=== PATIENT | female | born 1990 | race African-American/Black ===

== ENCOUNTER → 2016-06-20 | Outpatient (CLI) | payer OTHER ==
--- NOTE | 2016-06-20 14:47 | REP ---
LEFT FOOT, THREE VIEWS: HISTORY: Foot pain. There is no acute fracture or dislocation. 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 The joint spaces are otherwise normal in appearance. 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 Signed by Fausto Back MD 06/20/2016 02:59 P
== END ==
LOC: M RAD 11:53
PROVIDERS: ATTEND Orthopaedic Surgery
DX: M79.672 Pain in left foot (principal)

== ENCOUNTER → 2016-06-28 | Outpatient (REF) | payer OTHER ==
[2016-06-28 16:37] LABS: MEAN CORPUSCULAR HEMOGLOBIN 28.9 pg (27.0-33.0); MEAN CORPUSCULAR HGB CONC 31.7 g/dl (32.0-36.5); RED CELL DISTRIBUTION WIDTH 12.9 % (11.5-14.5); WHITE BLOOD COUNT 5.2 K/mm3 (4.0-10.0)
[2016-06-28 17:27] LABS: ALBUMIN/GLOBULIN RATIO 0.98 (1.00-1.93); ALKALINE PHOSPHATASE 88 U/L (45-117); ALT/SGPT 18 U/L (12-78); ANION GAP 10 MEQ/L (8-16); AST/SGOT 11 U/L (15-37); BILIRUBIN,TOTAL 0.8 MG/DL (0.2-1.0); BLOOD UREA NITROGEN 14 MG/DL (7-18); CALCIUM LEVEL 9.2 MG/DL (8.5-10.1); CARBON DIOXIDE LEVEL 25 MEQ/L (21-32); CHLORIDE LEVEL 104 MEQ/L (98-107); CREATININE FOR GFR 0.57 MG/DL (0.55-1.02); GLOMERULAR FILTRATION RATE > 60.0 (>60); GLUCOSE, FASTING 75 MG/DL (70-105); POTASSIUM SERUM 4.2 MEQ/L (3.5-5.1); SODIUM LEVEL 139 MEQ/L (136-145); TOTAL PROTEIN 8.1 GM/DL (6.4-8.2)
== END ==
LOC: M SFHCLERA 13:51
PROVIDERS: ATTEND Physician Assistant
DX: R53.83 Other fatigue (principal)

== ENCOUNTER → 2016-07-06 | Outpatient (CLI) | payer OTHER | LOC: M PT 13:30 | PROVIDERS: ATTEND Orthopaedic Surgery | DX: G80.9 Cerebral palsy, unspecified (principal); Z74.09 Other reduced mobility ==

== ENCOUNTER → 2016-07-28 | Outpatient (CLI) | payer OTHER ==
--- NOTE | 2016-07-31 11:42 | REP ---
CT study left foot without contrast: Repeat dictation. History: Evaluate for tarsal coalition. Possible calcaneonavicular subtalar bar. Comparison radiographs are from June 20, 2016. Technique: Helical scanning is acquired and 2 mm axial high resolution images are generated and reviewed. Coronal and sagittal multiplanar re-formation images are obtained. CT findings: There is no evidence of calcaneonavicular or other tarsal coalition. There is talonavicular spurring and there is mild spurring at the level of the first and second tarsometatarsal articulations. There is also spurring between the lateral cuneiform and the cuboid bone. There is fragmented spurring at the articulation between the anterolateral calcaneus and the cuboid bone. Some sclerosis is seen in the cuboid bone. There is also an area of joint space narrowing and beaking or spurring at the volar and medial aspect of the articulation between the third metatarsal and the lateral cuneiform. An os perineum is also noted. There is a tiny accessory navicular ossicle. No bony destructive lesion is seen. No significant soft tissue abnormality is noted. 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 No CT evidence of tarsal coalition. Signed by Regino Cueva MD 07/31/2016 03:34 P
== END ==
LOC: M RAD 10:08
PROVIDERS: ATTEND Orthopaedic Surgery
DX: M19.072 Primary osteoarthritis, left ankle and foot (principal); M25.772 Osteophyte, left ankle

== ENCOUNTER → 2016-08-23 | Outpatient (CLI) | payer OTHER ==
[2016-08-23 20:50] LABS: MEAN CORPUSCULAR HEMOGLOBIN 30.3 pg (27.0-33.0); MEAN CORPUSCULAR HGB CONC 33.5 g/dl (32.0-36.5); MEAN CORPUSCULAR VOLUME 90.6 fl (80.0-96.0); RED CELL DISTRIBUTION WIDTH 12.1 % (11.5-14.5); WHITE BLOOD COUNT 5.9 K/mm3 (4.0-10.0)
== END ==
LOC: M LRY 15:38
PROVIDERS: ATTEND Orthopaedic Surgery
DX: M19.90 Unspecified osteoarthritis, unspecified site (principal); R51 Headache

== ENCOUNTER → 2016-09-19 | Outpatient (CLI) | payer OTHER ==
--- NOTE | 2016-09-19 11:48 | REP ---
MRI BRAIN WITHOUT CONTRAST: HISTORY: Headaches. Severe punctate areas of increased signal intensity on T2-weighted images are present in the periventricular and subcortical white matter. There is no intraparenchymal hemorrhage, infarct, mass or midline shift. The ventricular system is normal in appearance. There is no extracerebral collection. The sinuses are clear. IMPRESSION: There are severe punctate areas of increased signal intensity in the periventricular and subcortical white matter. This is a nonspecific finding. Signed by Fausto Back MD 09/19/2016 11:57 A
[2016-09-19 12:05] VITALS: BP 115/65
== END ==
LOC: M RAD 08:37
PROVIDERS: ATTEND Psychiatry & Neurology Neurology
DX: R51 Headache (principal); R90.89 Other abnormal findings on diagnostic imaging of central nervous system; R42 Dizziness and giddiness; G80.9 Cerebral palsy, unspecified; F17.200 Nicotine dependence, unspecified, uncomplicated; Z88.5 Allergy status to narcotic agent; Z79.899 Other long term (current) drug therapy

== ENCOUNTER 2016-12-22 10:32 | Emergency (ER) | payer OTHER, SELFPAY ==
[~2016-12-22] VITALS: Ht 162.6 cm; Wt 82.0 kg
[2016-12-22 10:32] VITALS: BP 146/72
== END 2016-12-22 10:36 | disposition left against medical advice (07) ==
LOC: M ED 10:32
DX: Z53.21 Procedure and treatment not carried out due to patient leaving prior to being seen by health care provider (principal)

== ENCOUNTER → 2017-03-20 | Outpatient (CLI) | payer MEDICAID ==
--- NOTE | 2017-03-20 14:00 | REP ---
Thyroid ultrasound: Comparison is a ultrasound of the neck soft tissues of the neck dated 03/07/2016 that identified and 8 x 5 mm cyst in the lower pole of the thyroid right lobe. On the study today in both right and left lobes of the thyroid are enlarged and the isthmus is also enlarged. The right lobe measures 5.0 x 1.9 x 1.5 cm. The left lobe measures 5.0 x 2.0 x 1.2 cm. The isthmus measures 4.6 mm in thickness. The parenchyma of the right lobe is homogeneous. The previously identified right lobe cyst is no longer identified. There is a 3.7 mm cyst in the lower pole of the left lobe today. The remainder of the left lung parenchyma is homogeneous. The isthmus parenchyma is homogeneous. Impression: Diffusely enlarged thyroid. There is a 3.7 mm cyst in the lower pole of the left lobe. The previous right lobe cyst is no longer identified. Signed by Baron Fernandez MD 03/20/2017 01:52 P
== END ==
LOC: M RAD 12:00
PROVIDERS: ATTEND Physician Assistant
DX: E04.1 Nontoxic single thyroid nodule (principal)

== ENCOUNTER → 2017-06-14 | Outpatient (CLI) | payer MEDICAID | LOC: M RAD 17:29 | DX: E04.9 Nontoxic goiter, unspecified (principal) | CPT/HCPCS: 76536 ==

== ENCOUNTER 2017-07-18 12:52 | Outpatient (RCR) | payer MEDICAID | END 2017-08-01 | LOC: M PT 12:52 | DX: Z51.89 Encounter for other specified aftercare (principal); R26.2 Difficulty in walking, not elsewhere classified; R53.1 Weakness | CPT/HCPCS: 97110 ==

== ENCOUNTER 2017-08-06 13:07 | Outpatient (RCR) | payer MEDICAID | END 2017-09-01 | LOC: M PT 13:07 | DX: Z51.89 Encounter for other specified aftercare (principal); R26.2 Difficulty in walking, not elsewhere classified | CPT/HCPCS: 97110 ==

== ENCOUNTER 2017-09-12 13:21 | Outpatient (RCR) | payer MEDICAID | END 2017-10-01 | LOC: M PT 13:21 | DX: Z51.89 Encounter for other specified aftercare (principal); G80.9 Cerebral palsy, unspecified; R26.2 Difficulty in walking, not elsewhere classified | CPT/HCPCS: 97110 ==

== ENCOUNTER → 2017-09-20 | Outpatient (REF) | payer MEDICAID | LOC: M SFHCLERA 15:00 | DX: E04.1 Nontoxic single thyroid nodule (principal); E55.9 Vitamin D deficiency, unspecified ==

== ENCOUNTER → 2017-11-09 | Outpatient (REF) | payer MEDICAID ==
[2017-11-09 11:21] LABS: HEMATOCRIT 37.5 % (36.0-47.0); MEAN CORPUSCULAR HEMOGLOBIN 28.7 pg (27.0-33.0); MEAN CORPUSCULAR VOLUME 89.7 fl (80.0-96.0); PLATELET COUNT, AUTOMATED 244 10^3/uL (150-450); RED BLOOD COUNT 4.18 10^6/uL (4.00-5.40); WHITE BLOOD COUNT 4.9 10^3/uL (4.0-10.0)
[2017-11-09 12:13] LABS: TOTAL 25(OH) VITAMIN D 36.5 NG/ML (30.0-100.0)
[2017-11-09 12:55] LABS: ALBUMIN 3.4 GM/DL (3.2-5.2); ALBUMIN/GLOBULIN RATIO 0.89 (1.00-1.93); ALKALINE PHOSPHATASE 72 U/L (45-117); ALT/SGPT 17 U/L (12-78); ANION GAP 6 MEQ/L (8-16); AST/SGOT 9 U/L (7-37); BILIRUBIN,TOTAL 0.3 MG/DL (0.2-1.0); BLOOD UREA NITROGEN 15 MG/DL (7-18); CALCIUM LEVEL 8.5 MG/DL (8.5-10.1); CARBON DIOXIDE LEVEL 27 MEQ/L (21-32); CHLORIDE LEVEL 107 MEQ/L (98-107); CREATININE FOR GFR 0.53 MG/DL (0.55-1.30); FREE T4 1.04 NG/DL (0.76-1.46); GLOMERULAR FILTRATION RATE > 60.0 (>60); GLUCOSE, FASTING 77 MG/DL (70-100); POTASSIUM SERUM 4.4 MEQ/L (3.5-5.1); SODIUM LEVEL 140 MEQ/L (136-145); TOTAL PROTEIN 7.2 GM/DL (6.4-8.2)
== END ==
LOC: M SFHCLERA 10:05
DX: E55.9 Vitamin D deficiency, unspecified (principal); E04.1 Nontoxic single thyroid nodule; G44.209 Tension-type headache, unspecified, not intractable

== ENCOUNTER 2018-01-31 11:16 | Outpatient (RCR) | payer MEDICAID | END 2018-02-01 | LOC: M PT 11:16 | DX: Z51.89 Encounter for other specified aftercare (principal); G80.9 Cerebral palsy, unspecified | CPT/HCPCS: 97110 ==

== ENCOUNTER 2018-02-12 12:59 | Outpatient (RCR) | payer MEDICAID | END 2018-03-03 | LOC: M PT 02-15 13:45 | DX: G80.9 Cerebral palsy, unspecified (principal) | CPT/HCPCS: 97010 ==

== ENCOUNTER 2018-03-22 13:56 | Emergency (ER) | payer MEDICAID ==
[2018-03-22] MEDS: predniSONE 20 MG TAB PO (16:10)
== END 2018-03-22 16:28 | disposition home or self-care (01) ==
LOC: M ED 13:56
DX: T78.40XA Allergy, unspecified, initial encounter (principal); L29.9 Pruritus, unspecified; M79.9 Soft tissue disorder, unspecified; G80.9 Cerebral palsy, unspecified; Z88.5 Allergy status to narcotic agent; Z79.899 Other long term (current) drug therapy; Z79.2 Long term (current) use of antibiotics
CPT/HCPCS: 99283

== ENCOUNTER 2018-05-03 13:26 | Emergency (ER) | payer MEDICAID ==
[2018-05-03] MEDS: PERCOCET 5MG/325MG TAB PO (14:16)
== END 2018-05-03 16:09 | disposition home or self-care (01) ==
LOC: M ED 13:26
DX: M79.671 Pain in right foot (principal)
CPT/HCPCS: 73630

== ENCOUNTER 2018-07-11 11:48 | Emergency (ER) | payer MEDICAID ==
[~2018-07-11] VITALS: Ht 162.6 cm; Wt 76.8 kg
[~2018-07-11 11:48] MED LIST: BACL10TA2 PO; BENA25CA4 PO; FOLI1TAB11 PO; MINO100T PO; PERC5TAB12 PO; PRED20TA PO
[2018-07-11] MEDS ORDERED: IBUPROFEN 600 MG TAB PO ONE (13:45)
--- NOTE | 2018-07-11 15:04 | REP ---
Chest x-ray: Two views. History: Injury in a fall. . Comparison study: No comparison . Findings: The lungs are well inflated and free of infiltrate. The pleural angles are sharp. The heart size is normal. Pulmonary vasculature is not increased. No significant bony abnormality is seen. Impression: Negative chest x-ray. Electronically Signed by Regino Cueva MD 07/11/2018 02:55 P
--- NOTE | 2018-07-11 15:09 | REP ---
LEFT TIBIA/FIBULA, FOUR VIEWS: HISTORY: Fall. There is no acute fracture or dislocation. The joint spaces are normal in appearance. IMPRESSION: There is no acute fracture or dislocation. Electronically Signed by Fausto Back MD 07/11/2018 03:14 P
[2018-07-11 15:39] VITALS: BP 130/70
[2018-07-11] MEDS ORDERED: IBUP-1022 PO (15:39)
== END 2018-07-11 15:50 | disposition home or self-care (01) ==
LOC: M ED 11:48
DX: T14.8XXA Other injury of unspecified body region, initial encounter (principal); W19.XXXA Unspecified fall, initial encounter; Y92.099 Unspecified place in other non-institutional residence as the place of occurrence of the external cause; Y93.9 Activity, unspecified; Y99.9 Unspecified external cause status; G80.9 Cerebral palsy, unspecified; Z88.5 Allergy status to narcotic agent

== ENCOUNTER → 2018-09-30 | Outpatient (REF) | payer MEDICAID ==
[~2018-09-30] MED LIST changes: +IBUP-1022 PO
[2018-09-30 17:55] LABS: BASO % 0.2 % (0.0-1.0); EOS % 0.8 % (0.0-3.0); HEMATOCRIT 37.8 % (36.0-47.0); HEMOGLOBIN 11.9 g/dl (12.0-15.5); LYMPH % 40.6 % (24.0-44.0); MEAN CORPUSCULAR HEMOGLOBIN 28.9 pg (27.0-33.0); MEAN CORPUSCULAR HGB CONC 31.5 g/dl (32.0-36.5); MEAN CORPUSCULAR VOLUME 91.7 fl (80.0-96.0); MONO # 0.3 10^3/uL (0.0-0.8); MONO % 6.7 % (0.0-5.0); NEUTROPHILS # 2.5 10^3/uL (1.8-7.7); NEUTROPHILS % 51.5 % (36.0-66.0); PLATELET COUNT, AUTOMATED 258 10^3/uL (150-450); RED BLOOD COUNT 4.12 10^6/uL (4.00-5.40); WHITE BLOOD COUNT 4.8 10^3/uL (4.0-10.0)
[2018-09-30 18:07] LABS: ALBUMIN 3.5 GM/DL (3.2-5.2); ALT/SGPT 18 U/L (12-78); BILIRUBIN,TOTAL 0.5 MG/DL (0.2-1.0); BLOOD UREA NITROGEN 16 MG/DL (7-18); CALCIUM LEVEL 8.5 MG/DL (8.5-10.1); CARBON DIOXIDE LEVEL 26 MEQ/L (21-32); CHLORIDE LEVEL 106 MEQ/L (98-107); CREATININE FOR GFR 0.53 MG/DL (0.55-1.30); FREE T4 1.13 NG/DL (0.76-1.46); GLOMERULAR FILTRATION RATE > 60.0 (>60); GLUCOSE, FASTING 70 MG/DL (70-100); SODIUM LEVEL 138 MEQ/L (136-145); THYROID STIMULATING HORMONE 0.687 uIU/ML (0.358-3.740); TOTAL 25(OH) VITAMIN D 26.7 NG/ML (30.0-100.0); TOTAL PROTEIN 7.7 GM/DL (6.4-8.2)
== END ==
LOC: M SFHCLERA 11:52
PROVIDERS: ATTEND Family Medicine
DX: E55.9 Vitamin D deficiency, unspecified (principal); E04.1 Nontoxic single thyroid nodule; M06.9 Rheumatoid arthritis, unspecified

== ENCOUNTER 2018-11-18 18:39 | Emergency (ER) | payer MEDICAID ==
[~2018-11-18] VITALS: Ht 162.6 cm; Wt 88.2 kg
[2018-11-18] MEDS ORDERED: BACL10TA2 PO (18:47)
[2018-11-18] MEDS ORDERED: FOLI1TAB11 PO (18:48)
[2018-11-18 19:22] LABS: BASO % 0.3 % (0.0-1.0); EOS # 0.1 10^3/uL (0.0-0.50); EOS % 0.8 % (0.0-3.0); HEMATOCRIT 39.9 % (36.0-47.0); HEMOGLOBIN 12.6 g/dl (12.0-15.5); LYMPH # 1.9 10^3/uL (1.5-6.5); LYMPH % 31.2 % (24.0-44.0); MEAN CORPUSCULAR HEMOGLOBIN 27.9 pg (27.0-33.0); MEAN CORPUSCULAR HGB CONC 31.6 g/dl (32.0-36.5); MEAN CORPUSCULAR VOLUME 88.5 fl (80.0-96.0); MONO # 0.3 10^3/uL (0.0-0.8); MONO % 4.9 % (0.0-5.0); NEUTROPHILS # 3.7 10^3/uL (1.8-7.7); NEUTROPHILS % 62.6 % (36.0-66.0); PLATELET COUNT, AUTOMATED 248 10^3/uL (150-450); RED BLOOD COUNT 4.51 10^6/uL (4.00-5.40); WHITE BLOOD COUNT 5.9 10^3/uL (4.0-10.0)
[2018-11-18 19:59] LABS: ALBUMIN 3.6 GM/DL (3.2-5.2); ALT/SGPT 22 U/L (12-78); BILIRUBIN,DIRECT < 0.1 MG/DL (0.0-0.2); BILIRUBIN,TOTAL 0.2 MG/DL (0.2-1.0); BLOOD UREA NITROGEN 16 MG/DL (7-18); CALCIUM LEVEL 9.2 MG/DL (8.5-10.1); CARBON DIOXIDE LEVEL 28 MEQ/L (21-32); CHLORIDE LEVEL 107 MEQ/L (98-107); CK-MB VALUE MASS < 1.0 NG/ML (<3.6); CPK CREATINE PHOSPHOKINASE 111 U/L (26-192); CREATININE FOR GFR 0.62 MG/DL (0.55-1.30); ETHYL ALCOHOL (ETHANOL) < 0.003 % (0.000-0.010); GLOMERULAR FILTRATION RATE > 60.0 (>60); GLUCOSE, FASTING 91 MG/DL (70-100); POTASSIUM SERUM 4.2 MEQ/L (3.5-5.1); SODIUM LEVEL 139 MEQ/L (136-145); THYROID STIMULATING HORMONE 0.997 uIU/ML (0.358-3.740); TOTAL PROTEIN 7.8 GM/DL (6.4-8.2); TROPONIN I < 0.02 NG/ML (< 0.10)
[2018-11-18 20:13] LABS: AMPHETAMINES LEVEL URINE NEGATIVE (NEGATIVE); BARBITURATES URINE NEGATIVE (NEGATIVE); BENZODIAZEPINES URINE NEGATIVE (NEGATIVE); CANNABINOIDS URINE POSITIVE (NEGATIVE); COCAINE METABOLITE URINE NEGATIVE (NEGATIVE); METHADONE URINE NEGATIVE (NEGATIVE); OPIATES URINE NEGATIVE (NEGATIVE); PHENCYCLIDINE URINE NEGATIVE (NEGATIVE)
[2018-11-18 22:37] VITALS: BP 132/76
--- NOTE | 2018-11-19 06:01 | ECGEPIP ---
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
== END 2018-11-18 22:44 | disposition home or self-care (01) ==
LOC: M ED 18:39
DX: E86.0 Dehydration (principal); G80.9 Cerebral palsy, unspecified; Z88.5 Allergy status to narcotic agent
CPT/HCPCS: 36415; 80048; 80076; 80307; 81001; 82550; 82553; 84443; 85025; 87086; 93005; 99284; G0480

== ENCOUNTER → 2019-08-12 | Outpatient (REF) | payer MEDICAID ==
[2019-08-12 19:47] LABS: HEMOGLOBIN A1c 5.5 %
== END ==
LOC: M SFHCLERA 14:21
PROVIDERS: ATTEND Family Medicine
DX: E66.9 Obesity, unspecified (principal)

== ENCOUNTER 2020-11-10 12:32 | Emergency (ER) | payer MEDICARE, MEDICAID ==
[~2020-11-10] VITALS: Ht 162.6 cm; Wt 100.0 kg
[2020-11-10] MEDS ORDERED: BACITRACIN OINTMENT 30GM TUBE TOP ONE (15:35)
[2020-11-10 16:03] VITALS: BP 129/84
== END 2020-11-10 16:04 | disposition home or self-care (01) ==
LOC: M ED 12:32
DX: T23.202A Burn of second degree of left hand, unspecified site, initial encounter (principal); T31.0 Burns involving less than 10% of body surface; Z48.00 Encounter for change or removal of nonsurgical wound dressing; X15.8XXA Contact with other hot household appliances, initial encounter; Y92.009 Unspecified place in unspecified non-institutional (private) residence as the place of occurrence of the external cause; Y93.9 Activity, unspecified; Y99.9 Unspecified external cause status; Z88.5 Allergy status to narcotic agent

== ENCOUNTER → 2021-03-17 | Outpatient (CLI) | payer MEDICARE, MEDICAID ==
[2021-03-17 16:12] LABS: BASO % 0.3 % (0.0-1.0); EOS # 0.1 10^3/uL (0.0-0.5); EOS % 1.5 % (0.0-3.0); HEMATOCRIT 38.6 % (36.0-47.0); HEMOGLOBIN 12.4 g/dl (12.0-15.5); LYMPH # 1.6 10^3/uL (1.5-5.0); LYMPH % 27.7 % (24.0-44.0); MEAN CORPUSCULAR HEMOGLOBIN 28.8 pg (27.0-33.0); MEAN CORPUSCULAR HGB CONC 32.1 g/dl (32.0-36.5); MEAN CORPUSCULAR VOLUME 89.6 fl (80.0-96.0); MONO # 0.3 10^3/uL (0.0-0.8); MONO % 4.4 % (2.0-8.0); NEUTROPHILS # 3.8 10^3/uL (1.5-8.5); NEUTROPHILS % 65.6 % (36.0-66.0); PLATELET COUNT, AUTOMATED 274 10^3/uL (150-450); RED BLOOD COUNT 4.31 10^6/uL (4.00-5.40); WHITE BLOOD COUNT 5.9 10^3/uL (4.0-10.0)
[2021-03-17 16:27] LABS: HEMOGLOBIN A1c 5.1 %
[2021-03-17 16:53] LABS: ALBUMIN 3.5 GM/DL (3.2-5.2); ALT/SGPT 20 U/L (12-78); BILIRUBIN,TOTAL 0.5 MG/DL (0.2-1.0); BLOOD UREA NITROGEN 13 MG/DL (7-18); CALCIUM LEVEL 9.3 MG/DL (8.5-10.1); CARBON DIOXIDE LEVEL 29 MEQ/L (21-32); CHLORIDE LEVEL 108 MEQ/L (98-107); CHOLESTEROL LEVEL 108 MG/DL (<200); CHOLESTEROL RISK RATIO 1.894 (<5); CREATININE FOR GFR 0.66 MG/DL (0.55-1.30); GLOMERULAR FILTRATION RATE > 60.0 (>60); GLUCOSE, FASTING 92 MG/DL (70-100); HDL CHOLESTEROL 57 MG/DL (>40); LDL CHOLESTEROL 42 MG/DL (<100); NON-HDL-C 51 MG/DL; POTASSIUM SERUM 3.7 MEQ/L (3.5-5.1); SODIUM LEVEL 139 MEQ/L (136-145); THYROID STIMULATING HORMONE 0.719 uIU/ML (0.358-3.740); TOTAL PROTEIN 7.7 GM/DL (6.4-8.2); TRIGLYCERIDES LEVEL 44 MG/DL (<150)
== END ==
LOC: M WUC 14:28
PROVIDERS: ATTEND Family Medicine
DX: R11.0 Nausea (principal); Z79.899 Other long term (current) drug therapy

== ENCOUNTER → 2021-04-13 | Outpatient (CLI) | payer MEDICARE, MEDICAID ==
--- NOTE | 2021-04-16 09:35 | ECHO ---
ECHOCARDIOGRAM DATE OF PROCEDURE: 04/13/2021 Age: Gender: Female Height: 155 cm Weight: 98 kg REFERRING PHYSICIAN: Isabelle Walker M.D. INDICATION: Dyspnea, unspecified. MEASUREMENTS: 2D Measurements: Intraventricular septum 0.76 cm Posterior wall 0.92 cm Left ventricle diastole 5.7 cm Aortic root 2.6 cm Left atrium 3.3 cm Left atrial volume index 25 Proximal ascending aorta 2.4 cm Mid aortic arch 2.2 cm Doppler Measurements: No aortic regurgitation No aortic stenosis Aortic valve velocity 174 cm/sec LVOT velocity 135 cm/sec Very mild mitral regurgitation within normal limits No tricuspid regurgitation No pulmonic regurgitation Pulmonary artery acceleration time 155 msec DESCRIPTION: Rhythm was sinus rhythm to sinus tachycardia. No pericardial effusion. This was a moderately technically difficult echocardiogram. CONCLUSIONS: 1. Normal echocardiogram Doppler. 2. Normal left ventricle internal dimensions and wall thickness. Normal regional left ventricular (LV) wall motion and wall thickening. Normal LV systolic and diastolic function. Left ventricular ejection fraction (LVEF) 65% by visual assessment. 3. Pulmonary free systolic pressure not elevated.
== END ==
LOC: M CARPUL 09:14
PROVIDERS: ATTEND Student in an Organized Health Care Education/Training Program
DX: R06.00 Dyspnea, unspecified (principal)

== ENCOUNTER → 2022-03-14 | Outpatient (CLI) | payer MEDICARE, MEDICAID ==
[2022-03-14 12:18] LABS: BASO % 0.6 % (0.0-1.0); EOS # 0.1 10^3/uL (0.0-0.5); EOS % 1.4 % (0.0-3.0); HEMATOCRIT 39.2 % (36.0-47.0); HEMOGLOBIN 12.7 g/dl (12.0-15.5); LYMPH # 1.7 10^3/uL (1.5-5.0); LYMPH % 34.1 % (24.0-44.0); MEAN CORPUSCULAR HEMOGLOBIN 28.9 pg (27.0-33.0); MEAN CORPUSCULAR HGB CONC 32.4 g/dl (32.0-36.5); MEAN CORPUSCULAR VOLUME 89.3 fl (80.0-96.0); MONO # 0.3 10^3/uL (0.0-0.8); NEUTROPHILS % 58.7 % (36.0-66.0); PLATELET COUNT, AUTOMATED 268 10^3/uL (150-450); RED BLOOD COUNT 4.39 10^6/uL (4.00-5.40); WHITE BLOOD COUNT 5.1 10^3/uL (4.0-10.0)
[2022-03-14 12:39] LABS: HEMOGLOBIN A1c 5.2 %
[2022-03-14 12:43] LABS: ERYTHROCYTE SEDIMENTATION RATE 44 mm/hr (0-20)
[2022-03-14 13:02] LABS: ALBUMIN 3.7 GM/DL (3.2-5.2); ALT/SGPT 19 U/L (12-78); BILIRUBIN,TOTAL 0.3 MG/DL (0.2-1.0); BLOOD UREA NITROGEN 18 MG/DL (7-18); C REACTIVE PROTEIN QUANTITATIV 3.07 MG/DL (0.00-0.30); CALCIUM LEVEL 8.9 MG/DL (8.5-10.1); CARBON DIOXIDE LEVEL 26 MEQ/L (21-32); CHLORIDE LEVEL 108 MEQ/L (98-107); CHOLESTEROL LEVEL 106 MG/DL (<200); CHOLESTEROL RISK RATIO 1.737 (<5); GLOMERULAR FILTRATION RATE > 60.0 (>60); GLUCOSE, FASTING 91 MG/DL (70-100); HDL CHOLESTEROL 61 MG/DL (>40); LDL CHOLESTEROL 39 MG/DL (<100); NON-HDL-C 45 MG/DL; POTASSIUM SERUM 4.1 MEQ/L (3.5-5.1); RHEUMATOID FACTOR QUANT < 10.0 IU/ML (<15.0); SODIUM LEVEL 139 MEQ/L (136-145); THYROID STIMULATING HORMONE 0.727 uIU/ML (0.358-3.740); TOTAL PROTEIN 7.9 GM/DL (6.4-8.2); TRIGLYCERIDES LEVEL 32 MG/DL (<150); URIC ACID 2.8 MG/DL (2.6-6.0)
[2022-03-14 13:26] LABS: VITAMIN B12 LEVEL 744 PG/ML (247-911)
[2022-03-15 23:07] LABS: FOLATE 13.7 ng/mL (>3.0)
== END ==
LOC: M LAB 11:37
PROVIDERS: ATTEND Physician Assistant
DX: E55.9 Vitamin D deficiency, unspecified (principal); M25.50 Pain in unspecified joint; Z79.899 Other long term (current) drug therapy

== ENCOUNTER → 2022-08-14 | Outpatient (CLI) | payer MEDICARE, MEDICAID | LOC: M RAD 15:21 | PROVIDERS: ATTEND Internal Medicine Pulmonary Disease | DX: R06.02 Shortness of breath (principal) ==

== ENCOUNTER → 2022-11-01 | Outpatient (CLI) | payer MEDICARE, MEDICAID | LOC: M PLAIMG 13:09 | PROVIDERS: ATTEND Nurse Practitioner Family | DX: J98.4 Other disorders of lung (principal); R06.02 Shortness of breath; R05.9 Cough, unspecified ==

== ENCOUNTER → 2022-11-07 | Outpatient (CLI) | payer MEDICARE, MEDICAID ==
[~2022-11-07] MED LIST changes: +METHACHOLINE KIT INH ONE
== END ==
LOC: M CARPUL 08:38
PROVIDERS: ATTEND Internal Medicine Pulmonary Disease
DX: R06.02 Shortness of breath (principal)
CPT/HCPCS: 95070; J7674

== ENCOUNTER → 2022-11-22 | Outpatient (CLI) | payer MEDICARE, MEDICAID ==
[~2022-11-22] MED LIST changes: -METHACHOLINE KIT INH ONE
== END ==
LOC: M SLEEP 20:00
PROVIDERS: ATTEND Nurse Practitioner Family
DX: R06.83 Snoring (principal)

== ENCOUNTER → 2023-02-13 | Outpatient (CLI) | payer MEDICARE, MEDICAID ==
[2023-02-13 10:43] LABS: BASO % 0.6 % (0.0-1.0); EOS # 0.1 10^3/uL (0.0-0.5); EOS % 2.7 % (0.0-3.0); HEMATOCRIT 39.3 % (36.0-47.0); HEMOGLOBIN 12.3 g/dl (12.0-15.5); LYMPH # 1.7 10^3/uL (1.5-5.0); LYMPH % 32.7 % (24.0-44.0); MEAN CORPUSCULAR HEMOGLOBIN 28.4 pg (27.0-33.0); MEAN CORPUSCULAR HGB CONC 31.3 g/dl (32.0-36.5); MEAN CORPUSCULAR VOLUME 90.8 fl (80.0-96.0); MONO # 0.2 10^3/uL (0.0-0.8); MONO % 4.4 % (2.0-8.0); NEUTROPHILS # 3.1 10^3/uL (1.5-8.5); NEUTROPHILS % 59.4 % (36.0-66.0); PLATELET COUNT, AUTOMATED 261 10^3/uL (150-450); RED BLOOD COUNT 4.33 10^6/uL (4.00-5.40); WHITE BLOOD COUNT 5.2 10^3/uL (4.0-10.0)
[2023-02-13 11:09] LABS: ERYTHROCYTE SEDIMENTATION RATE 49 mm/hr (0-20)
[2023-02-13 11:15] LABS: ALBUMIN 3.7 G/DL (3.2-5.2); ALKALINE PHOSPHATASE 87 U/L (46-116); ALT/SGPT 17 U/L (7.0-40); AST/SGOT 11 U/L (<34); BILIRUBIN,TOTAL 0.3 MG/DL (0.3-1.2); BLOOD UREA NITROGEN 17 MG/DL (9-23); CALCIUM LEVEL 8.9 MG/DL (8.5-10.1); CARBON DIOXIDE LEVEL 26 MMOL/L (20-31); CHLORIDE LEVEL 104 MMOL/L (98-107); CREATININE FOR GFR 0.55 MG/DL (0.55-1.30); GLOMERULAR FILTRATION RATE > 60.0 (>60); GLUCOSE, FASTING 86 MG/DL (60-100); POTASSIUM SERUM 4.6 MMOL/L (3.5-5.1); SODIUM LEVEL 137 MMOL/L (136-145); TOTAL PROTEIN 7.1 G/DL (5.7-8.2)
[2023-02-13 11:35] LABS: URIC ACID 3.6 MG/DL (3.1-7.8)
[2023-02-13 11:38] LABS: RHEUMATOID FACTOR QUANT 5.6 IU/ML (<14)
== END ==
LOC: M LAB 09:51
PROVIDERS: ATTEND Physician Assistant
DX: M25.50 Pain in unspecified joint (principal)

== ENCOUNTER → 2023-05-11 | Outpatient (CLI) | payer MEDICARE, MEDICAID | LOC: M RAD 12:34 | PROVIDERS: ATTEND Physician Assistant | DX: E04.1 Nontoxic single thyroid nodule (principal) ==

== ENCOUNTER → 2023-07-04 | Outpatient (REF) | payer MEDICARE, MEDICAID ==
[2023-07-04 16:52] LABS: ALBUMIN 3.6 G/DL (3.2-5.2); ALKALINE PHOSPHATASE 79 U/L (46-116); ALT/SGPT 14 U/L (7.0-40); AST/SGOT 11 U/L (<34); BILIRUBIN,TOTAL 0.7 MG/DL (0.3-1.2); BLOOD UREA NITROGEN 11 MG/DL (9-23); CALCIUM LEVEL 9.2 MG/DL (8.5-10.1); CARBON DIOXIDE LEVEL 27 MMOL/L (20-31); CHLORIDE LEVEL 104 MMOL/L (98-107); CREATININE FOR GFR 0.52 MG/DL (0.55-1.30); GLOMERULAR FILTRATION RATE > 60.0 (>60); GLUCOSE, FASTING 84 MG/DL (60-100); IMMUNOGLOBULIN A 165.3 MG/DL (40-350); IMMUNOGLOBULIN G 1707 MG/DL (650-1600); SODIUM LEVEL 138 MMOL/L (136-145); TOTAL PROTEIN 7.7 G/DL (5.7-8.2)
[2023-07-04 16:55] LABS: BASO % 0.4 % (0.0-1.0); EOS # 0.1 10^3/uL (0.0-0.5); EOS % 1.9 % (0.0-3.0); HEMATOCRIT 40.5 % (36.0-47.0); HEMOGLOBIN 12.9 g/dl (12.0-15.5); LYMPH # 2.1 10^3/uL (1.5-5.0); LYMPH % 36.7 % (24.0-44.0); MEAN CORPUSCULAR HEMOGLOBIN 28.9 pg (27.0-33.0); MEAN CORPUSCULAR HGB CONC 31.9 g/dl (32.0-36.5); MEAN CORPUSCULAR VOLUME 90.6 fl (80.0-96.0); MONO # 0.3 10^3/uL (0.0-0.8); MONO % 4.6 % (2.0-8.0); NEUTROPHILS # 3.2 10^3/uL (1.5-8.5); PLATELET COUNT, AUTOMATED 272 10^3/uL (150-450); RED BLOOD COUNT 4.47 10^6/uL (4.00-5.40); WHITE BLOOD COUNT 5.7 10^3/uL (4.0-10.0)
[2023-07-04 17:02] LABS: ERYTHROCYTE SEDIMENTATION RATE 58 mm/hr (0-20)
[2023-07-11 18:08] LABS: HLA-B27 Negative (.); SSA SJOGRENS A <0.2 AI (0.0-0.9); SSB SJOGRENS B <0.2 AI (0.0-0.9)
== END ==
LOC: M SFHCRHEU 14:37
PROVIDERS: ATTEND Internal Medicine Rheumatology
DX: M25.50 Pain in unspecified joint (principal); R79.82 Elevated C-reactive protein (CRP); R20.0 Anesthesia of skin

== ENCOUNTER → 2023-07-18 | Outpatient (CLI) | payer MEDICARE, MEDICAID ==
[~2023-07-18] MED LIST changes: -MINO100T PO; +MINO100T6 PO
== END ==
LOC: M RAD 10:01
PROVIDERS: ATTEND Internal Medicine Rheumatology
DX: M19.072 Primary osteoarthritis, left ankle and foot (principal); M77.31 Calcaneal spur, right foot; M77.32 Calcaneal spur, left foot; R79.82 Elevated C-reactive protein (CRP); R20.0 Anesthesia of skin

== ENCOUNTER 2024-07-22 11:40 | Emergency (ER) | payer MEDICARE, MEDICAID ==
[~2024-07-22] VITALS: Ht 162.6 cm; Wt 89.8 kg
[2024-07-22] MEDS ORDERED: COLD1MIS PO (12:14)
[2024-07-22 13:58] VITALS: BP 129/84; TEMP 97.9; O2SAT 100
== END 2024-07-22 15:29 | disposition left against medical advice (07) ==
LOC: M ED 11:40
DX: Z53.21 Procedure and treatment not carried out due to patient leaving prior to being seen by health care provider (principal)

== ENCOUNTER → 2024-08-29 | Outpatient (CLI) | payer MEDICARE, MEDICAID ==
[~2024-08-29] MED LIST changes: +COLD1MIS PO
== END ==
LOC: M LAB 11:48
PROVIDERS: ATTEND Internal Medicine Rheumatology
DX: M25.50 Pain in unspecified joint (principal)

== ENCOUNTER → 2024-10-02 | Outpatient (CLI) | payer MEDICARE, MEDICAID | LOC: M RAD 08:59 | PROVIDERS: ATTEND Family Medicine | DX: M25.512 Pain in left shoulder (principal) ==

== ENCOUNTER → 2025-01-01 | Outpatient (RCR) | payer MEDICARE, MEDICAID | LOC: M PT 12-03 12:40 | PROVIDERS: ATTEND Family Medicine | DX: M25.512 Pain in left shoulder (principal) ==

== ENCOUNTER 2025-01-15 11:27 | Outpatient (RCR) | payer MEDICARE, MEDICAID ==
[~2025-01-15 11:27] MED LIST changes: -IBUP-1022 PO; +IBUP600T42 PO
== END 2025-02-01 ==
LOC: M PT 11:27
PROVIDERS: ATTEND Family Medicine
DX: M25.512 Pain in left shoulder (principal)

== ENCOUNTER 2025-02-23 10:00 | Outpatient (RCR) | payer MEDICARE, MEDICAID | END 2025-03-03 | LOC: M PT 10:00 | PROVIDERS: ATTEND Family Medicine | DX: M25.512 Pain in left shoulder (principal) ==

== ENCOUNTER → 2025-03-10 | Outpatient (CLI) | payer MEDICARE, MEDICAID | LOC: M RAD 15:57 | DX: E04.1 Nontoxic single thyroid nodule (principal) ==

== ENCOUNTER 2025-03-12 10:36 | Outpatient (RCR) | payer MEDICARE, MEDICAID | END 2025-04-03 | LOC: M PT 10:36 | PROVIDERS: ATTEND Family Medicine | DX: M25.512 Pain in left shoulder (principal) ==

== ENCOUNTER → 2025-05-13 | Outpatient (REF) | payer MEDICARE, MEDICAID ==
[2025-05-13 18:35] LABS: BASO # 0.0 10^3/uL (0.0-0.2); BASO % 0.4 % (0.0-1.0); EOS # 0.1 10^3/uL (0.0-0.5); EOS % 1.2 % (0.0-3.0); LYMPH # 1.6 10^3/uL (1.5-5.0); LYMPH % 31.9 % (24.0-44.0); MONO # 0.2 10^3/uL (0.0-0.8); MONO % 4.6 % (2.0-8.0); NEUTROPHILS # 3.0 10^3/uL (1.5-8.5); NEUTROPHILS % 60.7 % (36.0-66.0); PLATELET COUNT, AUTOMATED 289 10^3/uL (150-450)
[2025-05-13 18:42] LABS: ALT/SGPT 15 U/L (7.0-40); AST/SGOT 16 U/L (<34); CALCIUM LEVEL 9.2 MG/DL (8.5-10.1); CARBON DIOXIDE LEVEL 24 MMOL/L (20-31); CHLORIDE LEVEL 104 MMOL/L (98-107); CREATININE FOR GFR 0.51 MG/DL (0.55-1.30); GLOMERULAR FILTRATION RATE > 90.0 (>60); POTASSIUM SERUM 4.4 MMOL/L (3.5-5.1); SODIUM LEVEL 136 MMOL/L (136-145)
[2025-05-13 18:45] LABS: FREE T4 1.42 NG/DL (0.89-1.76)
[2025-05-13 19:11] LABS: ESTIMATED AVERAGE GLUCOSE 103.0 MG/DL (60-110)
== END ==
LOC: M SFHCLERA 11:23
PROVIDERS: ATTEND Family Medicine
DX: E04.1 Nontoxic single thyroid nodule (principal); Z68.34 Body mass index [BMI] 34.0-34.9, adult; Z79.899 Other long term (current) drug therapy; Z79.1 Long term (current) use of non-steroidal anti-inflammatories (NSAID)